=== PATIENT | male | born 1965 | race Caucasian/White ===

== ENCOUNTER 2017-01-19 19:48 | Inpatient (IN) | payer OTHER ==
[~2017-01-19] VITALS: Ht 177.8 cm; Wt 75.8 kg
[2017-01-19 20:38] LABS: HEMATOCRIT 41.6 % (39.2-51.8); HEMOGLOBIN 13.7 g/dL (13.7-18.0); WHITE BLOOD COUNT 5.5 x10^3/uL (3.4-10)
[2017-01-19 20:49] LABS: BLOOD UREA NITROGEN 18 mg/dL (7-18)
[2017-01-19] MEDS ORDERED: SODIUM CHLORIDE FLUSH 10ML SYR IVF ONE (22:00)
[2017-01-19 22:19] LABS: HIV 1&2 ANTIBODY SCREEN Nonreactive (Nonreactive); HIV-1 p24 ANTIGEN Nonreactive (Nonreactive)
[2017-01-19] MEDS ORDERED: SODIUM CHLORIDE FLUSH 10ML SYR IVF PRN (22:30)
[2017-01-20] MEDS ORDERED: ACETAMINOPHEN 325 MG TABLET PO PRN
[2017-01-20] MEDS ORDERED: ONDANSETRON ODT 4 MG PO PRN
[2017-01-20] MEDS ORDERED: hydrALAzine 20 MG/ML, 1ML IVPush PRN
[2017-01-20] MEDS ORDERED: TEMAZEPAM 15 MG CAPSULE PO PRN
[2017-01-20 01:41] VITALS: BP 119/73
[2017-01-20] MEDS ORDERED: BICILLIN-LA 2,400,000 UNITS/4 ML IM ONE (02:00)
[2017-01-20] MEDS: PENICILLIN GK 4,000,000 UNITS in DEXTROSE 5% 100 ML IV SCH ×4 (02:41→15:00)
[2017-01-20 06:01] VITALS: BP 112/68
[2017-01-20] MEDS: HEPARIN 5,000 UNITS/ML, 1ML SQ SCH ×3 (08:00→16:00)
[2017-01-20 14:30] VITALS: BP 101/64
[2017-01-20] MEDS ORDERED: BICILLIN-LA 1,200,000 UNITS/2 ML IM ONE ×2 (15:30→16:00)
== END 2017-01-20 17:53 | disposition home or self-care (01) | DRG 57 ==
LOC: ED 22:21 → EDIP 22:30 → 3NE 01-20 00:05
PROVIDERS: ADMIT Family Medicine; ATTEND Family Medicine
PROC: 009U3ZX Drainage of Spinal Canal, Percutaneous Approach, Diagnostic (ICD-10-PCS; principal; 2017-01-20)
PROC: B01B1ZZ Fluoroscopy of Spinal Cord using Low Osmolar Contrast (ICD-10-PCS; 2017-01-20)
DX: A52.3 Neurosyphilis, unspecified (principal); G10 Huntington's disease; H54.62 Unqualified visual loss, left eye, normal vision right eye; R73.9 Hyperglycemia, unspecified
CPT/HCPCS: 36415; 62270; 72100; 80048; 82040; 84157; 85025; 86592; 86703; 86780; 87529; 87899; 89051; 99285; J0561; J2540; Q0162; G0435

== ENCOUNTER 2017-01-22 17:49 | Emergency (ER) | payer OTHER ==
[~2017-01-22] VITALS: Ht 177.8 cm; Wt 75.8 kg
[2017-01-22 17:52] VITALS: BP 153/99
== END 2017-01-22 20:10 | disposition home or self-care (01) ==
LOC: ED 19:32
DX: A52.3 Neurosyphilis, unspecified (principal)
CPT/HCPCS: 99281